=== PATIENT | male | born 1960 | race Caucasian/White ===

== ENCOUNTER 2016-09-22 07:13 | Observation (INO) | payer OTHER ==
[~2016-09-22] VITALS: Ht 172.7 cm; Wt 65.0 kg
[~2016-09-22 07:13] MED LIST: CHLO25TA24 PO; CLON.1 PO; IBUP800T23 PO; LISI20 PO; NIFE1TAB86 PO
[2016-09-22 07:15] VITALS: BP 173/114; PULSE 104; RESP 17; TEMP 87; O2SAT 98
[2016-09-22 07:22] VITALS: BP 184/91; PULSE 86; RESP 18
[2016-09-22] MEDS ORDERED: LISI40TA PO (07:38)
[2016-09-22] MEDS ORDERED: NIFE30TA61 PO (07:38)
[2016-09-22] MEDS ORDERED: CLON0.1T PO (07:38)
[2016-09-22] MEDS ORDERED: OMEP20TA PO (07:38)
[2016-09-22] MEDS ORDERED: SERT-129 PO (07:38)
[2016-09-22] MEDS ORDERED: ASPIRIN 81 MG CHEW TAB PO ONE (08:00)
[2016-09-22] MEDS ORDERED: SODIUM CHLORIDE 0.9% FLUSH 5 ML FLUSH IVF PRN ×2 (08:00→10:45)
[2016-09-22 08:28] VITALS: BP_SYST 164; BP_SYST 165; BP_SYST 173; BP_DIAS 81; BP_DIAS 93; PULSE 76; RESP 20; O2SAT 97
[2016-09-22 08:28] LABS: AUTOMATED NEUTROPHIL # 3.8 TH/MM3 (1.8-7.7); BASOPHIL # 0.1 TH/MM3 (0-0.2); EOSINOPHIL # 0.1 TH/MM3 (0-0.4); HEMATOCRIT 38.2 % (39.0-51.0); HEMO FLAGS DIFF FINAL; LYMPHOCYTE # 1.7 TH/MM3 (1.0-4.8); MEAN CELL VOLUME 98.2 FL (80.0-100.0); MEAN CORPUSCULAR HEMOGLOBIN 34.6 PG (27.0-34.0); MEAN CORPUSCULAR HGB CONC 35.2 % (32.0-36.0); MONO % 10.8 % (0.0-8.0); NEUT % 59.2 % (16.0-70.0); PLATELET COUNT 245 TH/MM3 (150-450); RED BLOOD COUNT 3.89 MIL/MM3 (4.50-5.90); RED CELL DISTRIBUTION WIDTH 13.6 % (11.6-17.2); WHITE BLOOD COUNT 6.4 TH/MM3 (4.0-11.0)
[2016-09-22 08:29] VITALS: O2SAT 99
--- NOTE | 2016-09-22 08:35 | RADRPT ---
EXAM DATE/TIME: 09/22/2016 08:18 [facility] COMPARISON: CHEST SINGLE AP, July 26, 2014, 11:04. INDICATIONS : Patient has had chest pains for three days. Starting this morning he had an elevated blood pressure. MEDICAL HISTORY : Hypertension. SURGICAL HISTORY : None. ENCOUNTER: Initial ACUITY: 3 days PAIN SCORE: 3/10 LOCATION: chest FINDINGS: PA and lateral views of the chest demonstrate the lungs to be symmetrically aerated without evidence of infiltrate or effusion. A 1.7 cm nodule is seen projecting just lateral to the superior portion of the right hilum. This projects at the costochondral junction of the right third rib. The cardiomedia stinal contours are unremarkable. Osseous structures are intact. CONCLUSION: 1. 1.7 cm nodule involving the right upper lobe. CT scan of the chest is suggested to further evaluat e. 2. No acute infiltrate. Elias Escalera Jr., MD on September 22, 2016 at 8:31 Board Certified Radiologist. This report was verified electronically.
[2016-09-22 08:38] LABS: INTERNATIONAL NORMALIZED RATIO 0.9 RATIO; PROTHROMBIN TIME - PATIENT 10.3 SEC (9.8-11.6)
[2016-09-22 08:39] LABS: ANION GAP 11 MEQ/L (5-15); AST (GOT) 23 U/L (15-37); BICARBONATE 26.3 MEQ/L (21.0-32.0); BLOOD UREA NITROGEN 16 MG/DL (7-18); CHLORIDE 98 MEQ/L (98-107); GLOMERULAR FILTRATION RATE 76 ML/MIN (>89); MAGNESIUM 1.6 MG/DL (1.5-2.5); POTASSIUM 4.4 MEQ/L (3.5-5.1); SODIUM (NA) 135 MEQ/L (136-145)
[2016-09-22 08:44] LABS: ALKALINE PHOSPHATASE 58 U/L (45-117); ALT (GPT) 33 U/L (12-78); TOTAL BILIRUBIN ADULT 0.3 MG/DL (0.2-1.0)
[2016-09-22 08:51] LABS: CREATINE KINASE 83 U/L (39-308)
--- NOTE | 2016-09-22 08:58 | PD ---
HPI Chief Complaint: Hypertension Time Seen by Provider: 07:35 Travel History International Travel<30 days: No Contact w/Intl Traveler<30days: No Traveled to known affect area: No History of Present Illness HPI Patient is a 55-year-old male with history of hypertension who comes in complaining of high blood pressure and chest pain. He says he woke up this morning with a pressure in the left side of his chest, he then took his blood pressure noticed his very elevated, so he came to the emergency department. He says that his chest hurts him when his blood pressure is elevated. He reports compliance with his medications. He says that his blood pressure has been controlled for the past month, but seems to be worsening for the past few days. He denies any trouble breathing, nausea, diaphoresis. He denies any cough, fever or chills. PFSH Past Medical History Hx Anticoagulant Therapy: No Cardiovascular Problems: Yes (HTN) Chemotherapy: No Cerebrovascular Accident: No Diabetes: No Hypertension: Yes Respiratory: Yes (take inhaler) Tetanus Vaccination: < 5 Years Influenza Vaccination: No Past Surgical History Abdominal Surgery: Yes (HERNIA) Social History Alcohol Use: Yes (6-7 BEERS DAILY) Tobacco Use: No Substance Use: Yes (DAILY [facility]) Allergies-Medications (Allergen,Severity, Reaction): Coded Allergies: No Known Allergies (Unverified , 09/22/16) Reported Meds & Prescriptions Reported Meds & Active Scripts Active Lisinopril 20 Mg Tab 20 Mg PO BID Reported Nifedipine ER 24 HR (Nifedipine) 30 Mg Tab 30 Mg PO DAILY Omeprazole 20 Mg Tab 20 Mg PO BID Clonidine (Clonidine HCl) 0.1 Mg Tab 0.1 Mg PO BID Sertraline (Sertraline HCl) 100 Mg Tab 50 Mg PO DAILY Review of Systems Except as stated in HPI: all other systems reviewed are Neg General / Constitutional: No: Fever, Chills HENT: No: Headaches Cardiovascular: Positive: Chest Pain or Discomfort Respiratory: No: Cough, Shortness of Breath Gastrointestinal: No: Nausea, Vomiting Musculoskeletal: No: Weakness, Edema Skin: No Rash, No Change in Pigmentation Neurologic: No: Weakness, Dizziness Physical Exam Narrative GENERAL: Awake and alert, in no acute distress. SKIN: Warm and dry. HEAD: Atraumatic. Normocephalic. EYES: Pupils equal and round. No scleral icterus. ENT: Mucous membranes pink and moist. NECK: Trachea midline. No JVD. CARDIOVASCULAR: Regular rate and rhythm. No murmur appreciated. RESPIRATORY: No accessory muscle use. Bilateral wheezing throughout the lungs. Breath sounds equal bilaterally. GASTROINTESTINAL: Abdomen soft, non-tender, nondistended. MUSCULOSKELETAL: No obvious deformities. No clubbing. No cyanosis. No edema. NEUROLOGICAL: Awake and alert. No obvious cranial nerve deficits. Motor grossly within normal limits. Normal speech. PSYCHIATRIC: Appropriate mood and affect; insight and judgment normal. Data Data Last Documented VS Vital Signs Date Time Temp Pulse Resp B/P Pulse Ox O2 Delivery O2 Flow Rate FiO2 09/22/16 08:29 99 09/22/16 08:28 76 20 165/81 Room Air 173/93 09/22/16 07:15 87.0 Orders Electrocardiogram (09/22/16 08:00) Ckmb (Isoenzyme) Profile (09/22/16 08:00) Complete Blood Count With Diff (09/22/16 08:00) Comprehensive Metabolic Panel (09/22/16 08:00) Magnesium (Mg) (09/22/16 08:00) Prothrombin Time / Inr (Pt) (09/22/16 08:00) Act Partial Throm Time (Ptt) (09/22/16 08:00) Troponin I (09/22/16 08:00) Ecg Monitoring (09/22/16 08:00) Bilateral Bp Monitoring (09/22/16 08:00) Iv Access Insert/Monitor (09/22/16 08:00) Oximetry (09/22/16 08:00) Aspirin Chew (Aspirin Chew) (09/22/16 08:00) Sodium Chloride 0.9% Flush (Ns Flush) (09/22/16 08:00) Chest, Pa & Lat (09/22/16 08:00) Ct Thorax/ Chest Wo Iv Contras (09/22/16 ) Albuterol-Ipratropium Neb (Duoneb Neb) (09/22/16 09:00) Admit Order (Ed Use Only) (09/22/16 ) Labs Laboratory Tests Test 09/22/16 08:15 White Blood Count 6.4 TH/MM3 Red Blood Count 3.89 MIL/MM3 Hemoglobin 13.5 GM/DL Hematocrit 38.2 % Mean Corpuscular Volume 98.2 FL Mean Corpuscular Hemoglobin 34.6 PG Mean Corpuscular Hemoglobin 35.2 % Concent Red Cell Distribution Width 13.6 % Platelet Count 245 TH/MM3 Mean Platelet Volume 7.1 FL Neutrophils (%) (Auto) 59.2 % Lymphocytes (%) (Auto) 27.0 % Monocytes (%) (Auto) 10.8 % Eosinophils (%) (Auto) 2.0 % Basophils (%) (Auto) 1.0 % Neutrophils # (Auto) 3.8 TH/MM3 Lymphocytes # (Auto) 1.7 TH/MM3 Monocytes # (Auto) 0.7 TH/MM3 Eosinophils # (Auto) 0.1 TH/MM3 Basophils # (Auto) 0.1 TH/MM3 CBC Comment DIFF FINAL Differential Comment Prothrombin Time 10.3 SEC Prothromb Time International 0.9 RATIO Ratio Activated Partial 26.0 SEC Thromboplast Time Sodium Level 135 MEQ/L Potassium Level 4.4 MEQ/L Chloride Level 98 MEQ/L Carbon Dioxide Level 26.3 MEQ/L Anion Gap 11 MEQ/L Blood Urea Nitrogen 16 MG/DL Creatinine 1.01 MG/DL Estimat Glomerular Filtration 76 ML/MIN Rate Random Glucose 128 MG/DL Calcium Level 8.6 MG/DL Magnesium Level 1.6 MG/DL Total Bilirubin 0.3 MG/DL Aspartate Amino Transf 23 U/L (AST/SGOT) Alanine Aminotransferase 33 U/L (ALT/SGPT) Alkaline Phosphatase 58 U/L Total Creatine Kinase 83 U/L Troponin I LESS THAN 0.02 NG/ML Total Protein 7.2 GM/DL Albumin 3.8 GM/DL [facility] Medical Decision Making Medical Screen Exam Complete: Yes Emergency Medical Condition: Yes Interpretation(s) ECG shows normal sinus rhythm at 73, no ST elevation or depression, normal intervals Differential Diagnosis Hypertensive urgency versus hypertensive emergency versus ACS versus NSTEMI Narrative Course Patient is a 55-year-old male comes in complaining of chest pain and high blood pressure. Exam shows no acute abnormalities. IV established, patient connected to the monitor worker. Labs sent show no acute abnormalities. Chest x-ray performed shows possible pulmonary nodule. CT of the chest performed shows no such nodule. Patient given aspirin. Placed in chest pain center for further management. Diagnosis Primary Impression: Chest pain Qualified Code: R07.9 - Chest pain, unspecified type Admitting Information Admitting Physician Requests: Observation Scripts Lisinopril 20 Mg Tab20 Mg PO BID #60 TAB Ref 0 Prov:Adrián Klein 09/22/16 Condition: Stable Candace Morales MD Sep 22, 2016 08:58
[2016-09-22] MEDS ORDERED: RESP: ALBUTEROL 2.5 MG/IPRATROPIUM 0.5 MG NEB (SCH) NEB ONE (09:00)
--- NOTE | 2016-09-22 09:38 | RADRPT ---
EXAM DATE/TIME: 09/22/2016 09:23 [facility] COMPARISON: CHEST PA & LAT, September 22, 2016, 8:18. INDICATIONS : Abnormal chest x-ray. Left chest pain. Elevated blood pressure. RADIATION DOSE: 3.78 CTDIvol (mGy) MEDICAL HISTORY : Cardiovascular disease. Hypertension. SURGICAL HISTORY : None. ENCOUNTER: Initial ACUITY: 1 day PAIN SCALE: 4/10 LOCATION: Left chest TECHNIQUE: Volumetric scanning of the chest was performed. Using automated exposure control and adjustment of t he mA and/or kV according to patient size, radiation dose was kept as low as reasonably achievable to obtain optimal diagnostic quality images. FINDINGS: LUNGS: There is no consolidation or pneumothorax. No concerning pulmonary nodule is visualized. PLEURAE: There is no pleural thickening or pleural effusion. MEDIASTINUM: The heart and great vessels demonstrate no acute abnormality. There is no mediastinal or hilar lymph adenopathy. AXILLAE: Within normal limits. No lymphadenopathy. MUSCULOSKELETAL: Within normal limits for patient age. MISCELLANEOUS: The visualized upper abdominal organs demonstrate no acute abnormality. Significant coronary calcifi cations are noted. CONCLUSION: Significant coronary calcifications. There are no suspicious lung masses identified.. Charbel Waggoner MD FACR on September 22, 2016 at 9:34 Board Certified Radiologist. This report was verified electronically.
[2016-09-22 10:43] VITALS: BP 169/94; PULSE 89; RESP 18; O2SAT 98
[2016-09-22] MEDS ORDERED: ONDANSETRON HCL 4 MG/2 ML VIAL IV PRN (10:45)
[2016-09-22] MEDS ORDERED: ACETAMINOPHEN 500 MG CPLT PO PRN (10:45)
[2016-09-22] MEDS ORDERED: cloNIDine HCL 0.1 MG TAB PO ONE (10:45)
[2016-09-22] MEDS ORDERED: ACETAMINOPHEN/HYDROcodone 325 MG/7.5 MG TAB PO PRN (10:45)
--- NOTE | 2016-09-22 10:52 | HHI.HP ---
HPI Primary Care Physician [facility] Chief Complaint Hypertension and chest pain History of Present Illness This is a 55-year-old male that presents to the ED with a complaint of chest pain and hypertension. Patient states that for the last 3 days when he wakes up his blood pressure is high. About the same time will notice a unsettling feeling in the center of his chest. He will take an additional blood pressure medicine which he thinks his clonidine and within 2 hours discomfort will go. He states he does not have the discomfort if his blood pressure is normal. He takes 3 medications for his blood pressure cannot recall them all. He states that his spoke with the nurse and the nurses making accurate medication list. 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 Denies recent illness. Denies fevers or chills. Review of Systems General: Patient denies fevers, chills recent, and recent travel HEENT: Patient denies headache, sore throat, difficulty swallowing. Cardiovascular: Has the chest discomfort as mentioned above. Denies sensation of heart beating rapidly or irregularly. No syncope. Respiratory: Denies shortness of breath or inspirational chest discomfort. Denies coughing wheezing or hemoptysis. GI: Patient denies nausea, vomiting, diarrhea, abdominal pain, bloody stools. Musculoskeletal: Patient denies joint pain or edema. Denies calf pain or edema. Neurovascular: Patient denies numbness, tingling, weakness in extremities. Denies headache. Endocrine: Denies polyuria and polydipsia. Hematologic: Denies easy bruising. Skin: Denies rash or itching. Past Family Social History Allergies: Coded Allergies: No Known Allergies (Unverified , 09/22/16) Past Medical History Hypertension. Past history of tobacco abuse, states he quit smoking a couple years ago. Denies hyperlipidemia diabetes and CAD. Past Surgical History Hernia repair. Reported Medications Reported Meds & Active Scripts Active Reported Nifedipine ER 24 HR (Nifedipine) 30 Mg Tab 30 Mg PO DAILY Omeprazole 20 Mg Tab 20 Mg PO BID Clonidine (Clonidine HCl) 0.1 Mg Tab 0.1 Mg PO BID Sertraline (Sertraline HCl) 100 Mg Tab 50 Mg PO DAILY Lisinopril 40 Mg Tab 20 Mg PO DAILY Active Ordered Medications Current Medications Medications (Trade) Dose Ordered Sig/[place]ha Route Start Time Stop Time Status Last Admin (NS Flush) 2 ml UNSCH PRN IVF 09/22/16 08:00 (NS Flush) 2 ml UNSCH PRN IVF 09/22/16 10:45 UNV (NS Flush) 2 ml BID IVF 09/22/16 21:00 UNV (Tylenol) 500 mg Q4H PRN PO 09/22/16 10:45 UNV (Linden 7.5-325 Mg) 1 tab Q4H PRN PO 09/22/16 10:45 UNV (Zofran Inj) 4 mg Q6H PRN IV 09/22/16 10:45 UNV (Aspirin) 325 mg DAILY PO 09/23/16 09:00 UNV Family History Denies family history of CAD. Social History Patient quit smoking cigarettes 2 years ago but prior to that he smoked about one half pack of cigarettes daily for 40 years. He has on average 6 beers a day. He smokes marijuana daily. He is . He works in [employer]. Physical Exam Vital Signs Vital Signs Date Time Temp Pulse Resp B/P Pulse Ox O2 Delivery O2 Flow Rate FiO2 09/22/16 10:43 89 18 169/94 98 09/22/16 08:29 99 09/22/16 08:28 76 20 165/81 97 Room Air 173/93 09/22/16 07:22 86 18 184/91 09/22/16 07:15 87.0 104 17 173/114 98 Physical Exam GENERAL: This is a well-nourished, well-developed patient, in no apparent distress. Patient speaks in clear complete sentences. Patient is pleasant. HEENT: Head is atraumatic and normocephalic. Neck is supple without lymphadenopathy and trachea is midline. No JVD or carotid bruits. CARDIOVASCULAR: Regular rate and rhythm without murmurs, gallops, or rubs. RESPIRATORY: Clear to auscultation. Breath sounds equal bilaterally. No wheezes , rales, or rhonchi. Chest wall is nontender. No use of accessory muscles. GASTROINTESTINAL: Abdomen is nontender, nondistended. Abdomen soft. No obvious pulsatile mass or bruit. No CVA tenderness. Strong femoral pulses bilaterally. Normal bowel sounds in all quadrants. MUSCULOSKELETAL: Patient is moving upper and lower extremities freely. No calf tenderness or edema, no Homans sign. Strong pulses in upper and lower extremities. NEUROLOGICAL: Patient is alert and oriented. Cranial nerves 2-12 are grossly intact. No focal deficits and speech is clear. SKIN: No rash and turgor is normal. Laboratory Laboratory Tests Test 09/22/16 08:15 White Blood Count 6.4 Red Blood Count 3.89 Hemoglobin 13.5 Hematocrit 38.2 Mean Corpuscular Volume 98.2 Mean Corpuscular Hemoglobin 34.6 Mean Corpuscular Hemoglobin 35.2 Concent Red Cell Distribution Width 13.6 Platelet Count 245 Mean Platelet Volume 7.1 Neutrophils (%) (Auto) 59.2 Lymphocytes (%) (Auto) 27.0 Monocytes (%) (Auto) 10.8 Eosinophils (%) (Auto) 2.0 Basophils (%) (Auto) 1.0 Neutrophils # (Auto) 3.8 Lymphocytes # (Auto) 1.7 Monocytes # (Auto) 0.7 Eosinophils # (Auto) 0.1 Basophils # (Auto) 0.1 CBC Comment DIFF FINAL Differential Comment Prothrombin Time 10.3 Prothromb Time International 0.9 Ratio Activated Partial 26.0 Thromboplast Time Sodium Level 135 Potassium Level 4.4 Chloride Level 98 Carbon Dioxide Level 26.3 Anion Gap 11 Blood Urea Nitrogen 16 Creatinine 1.01 Estimat Glomerular Filtration 76 Rate Random Glucose 128 Calcium Level 8.6 Magnesium Level 1.6 Total Bilirubin 0.3 Aspartate Amino Transf 23 (AST/SGOT) Alanine Aminotransferase 33 (ALT/SGPT) Alkaline Phosphatase 58 Total Creatine Kinase 83 Troponin I LESS THAN 0.02 Total Protein 7.2 Albumin 3.8 Result Diagram: 09/22/16 0815 09/22/16 0815 Imaging Chest x-ray read by radiologist as no infiltrate. There is a lung nodule right upper lobe. A CT of the chest without contrast was obtained. Radiologist read as no lung masses seen. There is significant coronary calcifications. Course Initial EKG is sinus rhythm without significant ST segment depressions or elevations. Assessment and Plan Assessment and Plan * Chest pain: Patient will have cardiac enzymes and EKGs to rule out. He will be seen by Dr. Wang cardiology and the chest pain center and will likely undergo a Maxwell protocol ETT. He likely be discharged home if his stress test were to be nonischemic. * Hypertension: We'll continue current medications and likely add additional medication which would likely be a beta vipul. Adrián Klein Sep 22, 2016 10:52
[2016-09-22] MEDS ORDERED: LISINOPRIL 20 MG TAB PO ONE (11:30)
[2016-09-22] MEDS ORDERED: LISI-515 PO (11:31)
--- NOTE | 2016-09-22 11:31 | HHI.DCPOC ---
Discharge Care Plan Diagnosis: (1) Chest pain (2) HTN (hypertension) Goals to Promote Your Health DISCUSS TAKING HCTZ IF BLOOD PRESSURE IS STILL HIGH. * To prevent worsening of your condition and complications * To maintain your health at the optimal level Directions to Meet Your Goals Take your medications as prescribed Follow your dietary instruction Follow activity as directed Keep your appointments as scheduled Take your immunizations and boosters as scheduled If your symptoms worsen call your PCP, if no PCP go to Urgent Care Center or Emergency Room Smoking is Dangerous to Your Health. Avoid second hand smoke Call the 24-hour hour crisis hotline for domestic abuse at Adrián Klein Sep 22, 2016 11:31
[2016-09-22 11:56] VITALS: BP 166/88; PULSE 89; RESP 20; TEMP 97.1; O2SAT 95
--- NOTE | 2016-09-22 14:14 | TR ---
Date Performed: 09/22/2016 Time Performed: 11:09:40 DOCTOR: Jaya Garza DRUG LIST: CLINICAL HISTORY: REASON FOR TEST: REASON FOR ENDING: OBSERVATION: CONCLUSION: JEFFREY PROTOCOL. NO CP. TEST STOPPED AFTER EXCEEDING GOAL HR SECONDARY TO SOB AND LEG FATIGUE.Maximum MY=938 % Max HR Achieved=98.0% Maximum SU=551/82 Total Exercise Time=6:31 COMMENTS: Conclusion: Normal treadmill exercise. No evidence of ischemia.
--- NOTE | 2016-09-22 14:22 | EKG ---
Date Performed: 09/22/2016 Time Performed: 08:24:06 PTAGE: 55 years EKG: Sinus rhythm WITH SHORT AK INTERVAL POSSIBLE RIGHT VENTRICULAR CONDUCTION DELAY BORDERLINE ECG PREVIOUS TRACING : 07/26/2014 11.00 Since previous tracing, no significant change noted DOCTOR: Jaya Garza Interpretating Date/Time 09/22/2016 14:20:31
[2016-09-22] MEDS ORDERED: SODIUM CHLORIDE 0.9% FLUSH 5 ML FLUSH IVF SCH (21:00)
[2016-09-22] MEDS ORDERED: cloNIDine HCL 0.1 MG TAB PO SCH (21:00)
[2016-09-22] MEDS ORDERED: PANTOPRAZOLE SOD 20 MG DELAYED RELEASE TAB PO SCH (21:00)
[2016-09-23] MEDS ORDERED: NIFEdipine 30 MG SUSTAINED RELEASE TAB PO SCH (09:00)
[2016-09-23] MEDS ORDERED: ASPIRIN 325 MG TAB PO SCH (09:00)
[2016-09-23] MEDS ORDERED: SERTRALINE HCL 50 MG TAB PO SCH (09:00)
[2016-09-23] MEDS ORDERED: LISINOPRIL 20 MG TAB PO SCH (09:00)
== END 2016-09-22 12:13 | disposition home or self-care (01) ==
LOC: NEPE 07:13 → NEDA 09:54 → NEPFCDU 11:51
DX: R07.9 Chest pain, unspecified (principal); I10 Essential (primary) hypertension; Z87.891 Personal history of nicotine dependence
CPT/HCPCS: 71020; 71250; 80053; 82550; 83735; 84484; 85025; 85610; 85730; 93005; 93017; 94664; 99285; G0378